=== PATIENT | male | born 1955 | race Caucasian/White ===

== ENCOUNTER → 2017-11-02 | Outpatient (CLI) | payer BC ==
[~2017-11-02] MED LIST: COZAAR100 MG PO; NO HOME MEDICATIONS; PRILOSEC 20MG20 MG PO; SILVADENE CREAM1 TU TP; XANAX 0.5MG0.5 MG PO
== END ==
LOC: COL.RAD 12:17
DX: S32.010A Wedge compression fracture of first lumbar vertebra, initial encounter for closed fracture (principal)

== ENCOUNTER → 2017-11-08 | Outpatient (CLI) | payer BC ==
[2017-11-08] VITALS (11 sets, daily range): BP systolic 115–152; BP diastolic 60–87; PULSE 96–109
[~2017-11-08] VITALS: Ht 177.8 cm; Wt 76.4 kg
[~2017-11-08] MED LIST changes: +LASIX 20MG TABL20 MG PO; +NORCO 325 MG-51 TAB PO; +VALTREX1 GM PO
== END ==
LOC: COL.RAD 12:00
DX: S32.010A Wedge compression fracture of first lumbar vertebra, initial encounter for closed fracture (principal); Z82.49 Family history of ischemic heart disease and other diseases of the circulatory system; Z80.7 Family history of other malignant neoplasms of lymphoid, hematopoietic and related tissues

== ENCOUNTER 2017-11-15 17:01 | Inpatient (IN) | payer BC ==
[~2017-11-15] VITALS: Ht 177.8 cm; Wt 71.5 kg
[~2017-11-15 17:01] MED LIST changes: -LASIX 20MG TABL20 MG PO
[2017-11-15 17:36] VITALS: BP 136/70; PULSE 110; TEMP 98.5
[2017-11-15 21:33] VITALS: BP 122/58; PULSE 106; TEMP 98.3
[2017-11-15] MEDS ORDERED: LASIX 20MG TABL20 MG PO (23:09)
[2017-11-16] VITALS (13 sets, daily range): BP systolic 107–154; BP diastolic 58–74; PULSE 86–101; TEMP 97.3–98.8
[2017-11-16 07:17] LABS: BASO # 0.1 (0.0-0.2); BASO % 0.6 % (0.0-2.0); EOS # 0.4 (0.0-0.7); EOS % 4.8 % (0-4.0); GRAN # 5.1 (1.4-6.5); GRAN % 59.2 % (42.2-75.2); HEMATOCRIT 33.6 % (42.0-52.0); HEMOGLOBIN 11.3 g/dl (13.5-18.0); LYMPH # 1.5 (1.2-3.4); LYMPH % 17.9 % (20.0-51.0); MEAN CELL VOLUME 89 fl (80.0-100.0); MEAN CORPUSCULAR HEMOGLOBIN 30 pg (27.0-31.0); MEAN CORPUSCULAR HGB CONC 34 g/dl (33.0-37.0); MONO # 1.4 (0.1-0.6); MONO % 15.8 % (1.7-9.3); PLATELET COUNT 274 K/mm3 (130-400); RED BLOOD COUNT 3.77 M/mm3 (4.20-5.60); REDCELL DISTRIBUTION WIDTH-CV 12.1 % (11.5-14.5)
[2017-11-16 07:34] LABS: ALBUMIN 3.3 gm/dL (3.5-5.0); BILIRUBIN,TOTAL 0.4 mg/dL (0.0-1.0); POTASSIUM 3.2 mmol/L (3.4-5.0); TOTAL PROTEIN 6.7 gm/dL (6.4-8.2)
[2017-11-16 07:46] LABS: CREATININE, serum 4.23 mg/dL (0.66-1.25)
[2017-11-16 07:47] LABS: CALCIUM 14.9 mg/dL (8.4-10.2)
[2017-11-16 13:34] LABS: COLLECTION METHOD CLEAN CATCH
[2017-11-16 13:41] LABS: MUCOUS Present /lpf; PH 6 (5-8); SQUAMOUS EPITHELIAL None Seen /hpf; URINE APPEARANCE Clear; URINE BACTERIA None Seen /hpf; URINE BILIRUBIN Negative (NEGATIVE); URINE BLOOD 1+ (NEGATIVE); URINE COLOR Straw; URINE GLUCOSE Negative (NEGATIVE); URINE KETONE Negative (NEGATIVE); URINE LEUKOCYTE ESTERASE Negative (NEGATIVE); URINE NITRATE Negative (NEGATIVE); URINE PROTEIN(semi-quant) 1+ (NEGATIVE); URINE RBC 0-2 /hpf; URINE UROBILINOGEN Negative (NEGATIVE)
[2017-11-16 14:04] LABS: CREATININE, serum 4.25 mg/dL (0.66-1.25); FRACTIONAL EXCRETION OF NA+ 2.7 %
[2017-11-16 21:23] LABS: CREATININE, serum 3.89 mg/dL (0.66-1.25); POTASSIUM 4.1 mmol/L (3.4-5.0)
[2017-11-16 21:25] LABS: CALCIUM 13.9 mg/dL (8.4-10.2)
[2017-11-17 01:47] VITALS: BP 142/63; PULSE 98; TEMP 98.1
[2017-11-17 06:29] VITALS: BP 148/98; PULSE 84; TEMP 97.8
[2017-11-17 07:38] LABS: MEAN CELL VOLUME 89 fl (80.0-100.0); MEAN CORPUSCULAR HGB CONC 33 g/dl (33.0-37.0); MEAN PLATELET VOLUME 11.9 fl (7.4-10.4); PLATELET COUNT 227 K/mm3 (130-400); REDCELL DISTRIBUTION WIDTH-CV 12.2 % (11.5-14.5)
[2017-11-17 07:58] LABS: CREATININE, serum 3.75 mg/dL (0.66-1.25); MAGNESIUM 1.6 mg/dL (1.6-2.3)
[2017-11-17 08:03] LABS: HEMATOCRIT 32.1 % (42.0-52.0); HEMOGLOBIN 10.7 g/dl (13.5-18.0); MEAN CORPUSCULAR HEMOGLOBIN 30 pg (27.0-31.0)
[2017-11-17 08:04] LABS: POTASSIUM 4.3 mmol/L (3.4-5.0)
[2017-11-17 08:05] LABS: CALCIUM 13.9 mg/dL (8.4-10.2)
[2017-11-17 08:43] LABS: BAND 11 % (0-10); BASOPHIL 1 % (0-2); LYMPHOCYTE 8 % (20.0-51.0); NEUTROPHILS 78 % (42.0-75.2)
[2017-11-17 08:45] LABS: PLATELET ESTIMATE NORMAL (NORMAL)
[2017-11-17 08:47] LABS: HYPERSEGMENTED POLYS PRESENT
[2017-11-17 10:50] VITALS: BP 119/58; PULSE 69; TEMP 100.2
[2017-11-17 15:14] VITALS: BP 121/61; PULSE 102; TEMP 100.3
[2017-11-17 18:52] VITALS: BP 113/61; PULSE 94; TEMP 99.3
[2017-11-17 21:41] VITALS: BP 125/51; PULSE 111; TEMP 99.8
[2017-11-18 01:10] VITALS: BP 117/55; PULSE 98; TEMP 98.2
[2017-11-18 04:59] VITALS: BP 112/61; PULSE 90; TEMP 98.1
[2017-11-18 07:01] LABS: CALCIUM 11.5 mg/dL (8.4-10.2); CREATININE, serum 3.55 mg/dL (0.66-1.25); MAGNESIUM 1.5 mg/dL (1.6-2.3); POTASSIUM 3.8 mmol/L (3.4-5.0)
[2017-11-18 10:26] VITALS: BP 120/68; PULSE 99; TEMP 98.3
[2017-11-18 14:41] VITALS: BP 133/68; PULSE 111; TEMP 98.9
[2017-11-18 19:05] VITALS: BP 140/73; PULSE 110; TEMP 99.1
[2017-11-18 21:45] VITALS: BP 143/62; PULSE 104; TEMP 99
[2017-11-19 00:47] VITALS: BP 128/63; PULSE 98; TEMP 98.5
[2017-11-19 04:46] VITALS: BP 125/61; PULSE 100; TEMP 99.3
[2017-11-19 06:08] LABS: BASO % 0.3 % (0.0-2.0); EOS # 0.1 (0.0-0.7); EOS % 0.7 % (0-4.0); GRAN # 7.4 (1.4-6.5); GRAN % 74.8 % (42.2-75.2); LYMPH % 10.5 % (20.0-51.0); MEAN CELL VOLUME 91 fl (80.0-100.0); MEAN CORPUSCULAR HGB CONC 33 g/dl (33.0-37.0); MEAN PLATELET VOLUME 12.4 fl (7.4-10.4); MONO # 1.2 (0.1-0.6); MONO % 12.5 % (1.7-9.3); PLATELET COUNT 201 K/mm3 (130-400); RED BLOOD COUNT 3.33 M/mm3 (4.20-5.60); REDCELL DISTRIBUTION WIDTH-CV 12.8 % (11.5-14.5)
[2017-11-19 06:23] LABS: CREATININE, serum 3.34 mg/dL (0.66-1.25); HEMATOCRIT 30.3 % (42.0-52.0); HEMOGLOBIN 9.9 g/dl (13.5-18.0); MAGNESIUM 2.1 mg/dL (1.6-2.3); MEAN CORPUSCULAR HEMOGLOBIN 30 pg (27.0-31.0); PHOSPHOROUS 3.1 mg/dL (2.5-4.5); POTASSIUM 3.5 mmol/L (3.4-5.0)
[2017-11-19 08:16] LABS: PATHOLOGY DIFF REVIEW OK
[2017-11-19 10:59] VITALS: BP 123/70; PULSE 97; TEMP 98.3
[2017-11-19 13:45] VITALS: BP 127/68; PULSE 107; TEMP 98.3
[2017-11-19 19:18] VITALS: BP 127/63; PULSE 98; TEMP 99.2
[2017-11-19 22:00] VITALS: BP 130/69; PULSE 103; TEMP 98
[2017-11-20 05:57] VITALS: BP 124/73; PULSE 97; TEMP 98.4
[2017-11-20 07:35] LABS: BASO % 0.4 % (0.0-2.0); EOS # 0.3 (0.0-0.7); EOS % 2.6 % (0-4.0); GRAN # 7.3 (1.4-6.5); GRAN % 72.4 % (42.2-75.2); LYMPH # 1.2 (1.2-3.4); MEAN CELL VOLUME 88 fl (80.0-100.0); MEAN CORPUSCULAR HGB CONC 34 g/dl (33.0-37.0); MEAN PLATELET VOLUME 12.2 fl (7.4-10.4); MONO # 1.1 (0.1-0.6); PLATELET COUNT 206 K/mm3 (130-400); RED BLOOD COUNT 3.55 M/mm3 (4.20-5.60); REDCELL DISTRIBUTION WIDTH-CV 12.7 % (11.5-14.5)
[2017-11-20 07:42] LABS: CALCIUM 9.9 mg/dL (8.4-10.2); CREATININE, serum 3.23 mg/dL (0.66-1.25); POTASSIUM 3.2 mmol/L (3.4-5.0)
[2017-11-20 07:45] LABS: HEMATOCRIT 31.3 % (42.0-52.0); HEMOGLOBIN 10.6 g/dl (13.5-18.0); MEAN CORPUSCULAR HEMOGLOBIN 30 pg (27.0-31.0)
[2017-11-20 09:13] VITALS: BP 123/64; PULSE 96; TEMP 98.2
[2017-11-20] MEDS ORDERED: LEADER CLEARLAX 510 PO (13:31)
[2017-11-20] MEDS ORDERED: SENOKOT S 50 MG1 TAB PO (13:32)
[2017-11-20] MEDS ORDERED: ZYLOPRIM 300MG300 MG PO (13:33)
[2017-11-20] MEDS ORDERED: LEVAQUIN 750MG750 M1 PO (13:33)
[2017-11-20 13:34] VITALS: BP 122/71; PULSE 89; TEMP 97.7
== END 2017-11-20 14:52 | disposition home or self-care (01) | DRG 682 ==
LOC: SURG 17:01
PROVIDERS: Internal Medicine; Nurse Practitioner; Nurse Practitioner Family; Pathology Anatomic Pathology & Clinical Pathology
PROC: 07DR3ZX Extraction of Iliac Bone Marrow, Percutaneous Approach, Diagnostic (ICD-10-PCS; principal; 2017-11-16 09:30)
DX: N17.9 Acute kidney failure, unspecified (principal); J18.9 Pneumonia, unspecified organism; E43 Unspecified severe protein-calorie malnutrition; C90.00 Multiple myeloma not having achieved remission; M48.56XA Collapsed vertebra, not elsewhere classified, lumbar region, initial encounter for fracture; C79.51 Secondary malignant neoplasm of bone; E83.52 Hypercalcemia; Z95.2 Presence of prosthetic heart valve; I10 Essential (primary) hypertension; K58.0 Irritable bowel syndrome with diarrhea; I27.20 Pulmonary hypertension, unspecified; E87.6 Hypokalemia; E83.42 Hypomagnesemia
CPT/HCPCS: 99223-AI; 99232-AI; 99233-AI; 99239; J0630; J1644; J1940; J1956; J2270; J2405; J2430; J2704; J3010; J3370; J3475; J3480; J7030; J7050

== ENCOUNTER 2018-01-27 09:54 | Emergency (ER) | payer BC ==
[~2018-01-27] VITALS: Ht 177.8 cm; Wt 75.0 kg
[~2018-01-27 09:54] MED LIST changes: +LASIX 20MG TABL20 MG PO; +LEADER CLEARLAX 510 PO; +LEVAQUIN 750MG750 M1 PO; +SENOKOT S 50 MG1 TAB PO; +ZYLOPRIM 300MG300 MG PO
[2018-01-27 10:00] VITALS: BP 130/73; TEMP 98.1
[2018-01-27] MEDS ORDERED: PRILOSEC 20MG20 MG PO (10:38)
[2018-01-27] MEDS ORDERED: LASIX 40MG TABL40 MG PO (10:39)
[2018-01-27] MEDS ORDERED: COZAAR 25MG25 MG/TAB PO (10:39)
[2018-01-27] MEDS ORDERED: ZOVIRAX400 MG PO (10:40)
[2018-01-27] MEDS ORDERED: REVLIMID25 MG (10:55)
[2018-01-27] MEDS ORDERED: ASPIRIN 32325 MG/TAB PO (10:56)
[2018-01-27] MEDS ORDERED: VELCADE3.5 MG IM (10:56)
[2018-01-27] MEDS ORDERED: XGEVA120 MG/1.7 IM (10:57)
[2018-01-27] MEDS ORDERED: DECADRON 4MG TAB4 MG PO (10:57)
[2018-01-27 11:12] VITALS: PULSE 93
== END 2018-01-27 11:12 | disposition home or self-care (01) ==
LOC: COL.ER 09:54
DX: M79.602 Pain in left arm (principal); C90.00 Multiple myeloma not having achieved remission; Z79.82 Long term (current) use of aspirin

== ENCOUNTER → 2018-01-29 | Outpatient (CLI) | payer BC ==
[~2018-01-29] MED LIST changes: +ASPIRIN 32325 MG/TAB PO; +COZAAR 25MG25 MG/TAB PO; +DECADRON 4MG TAB4 MG PO; +LASIX 40MG TABL40 MG PO; +REVLIMID25 MG; +VELCADE3.5 MG IM; +XGEVA120 MG/1.7 IM; +ZOVIRAX400 MG PO
== END ==
LOC: COL.VAS 08:00
DX: C90.00 Multiple myeloma not having achieved remission (principal); S46.812A Strain of other muscles, fascia and tendons at shoulder and upper arm level, left arm, initial encounter; S40.022A Contusion of left upper arm, initial encounter; Z79.899 Other long term (current) drug therapy

== ENCOUNTER 2019-01-05 12:19 | Inpatient (IN) | payer BC ==
[~2019-01-05] VITALS: Ht 172.7 cm; Wt 75.0 kg
[2019-01-05] MEDS ORDERED: ZOVIRAX800 MG PO (12:46)
[2019-01-05] MEDS ORDERED: NEURONTIN600 MG/TAB PO (12:47)
[2019-01-05] MEDS ORDERED: CEFTIN 250250 MG/TAB PO ×2 (12:47→17:06)
[2019-01-05] MEDS ORDERED: LEVAQUIN 5500 MG/TA1 PO ×2 (12:47→17:07)
[2019-01-05 13:31] LABS: HEMOGLOBIN 10.4 g/dl (13.5-18.0); MEAN CELL VOLUME 99 fl (80.0-100.0); MEAN CORPUSCULAR HEMOGLOBIN 32 pg (27.0-31.0); MEAN CORPUSCULAR HGB CONC 33 g/dl (33.0-37.0); MEAN PLATELET VOLUME 11.3 fl (7.4-10.4); PLATELET COUNT 218 K/mm3 (130-400); RED BLOOD COUNT 3.22 M/mm3 (4.20-5.60); REDCELL DISTRIBUTION WIDTH-CV 15.5 % (11.5-14.5)
[2019-01-05 13:37] LABS: HEMATOCRIT 31.8 % (42.0-52.0)
[2019-01-05 13:42] LABS: ALBUMIN 3.6 gm/dL (3.5-5.0); BILIRUBIN,TOTAL 0.6 mg/dL (0.0-1.0); CALCIUM 8.5 mg/dL (8.4-10.2); CREATININE, serum 0.99 (0.66-1.25); POTASSIUM 3.7 mmol/L (3.4-5.0); TOTAL PROTEIN 6.7 gm/dL (6.4-8.2)
[2019-01-05 13:44] LABS: BAND 22 % (0-10); NEUTROPHILS 76 % (42.0-75.2); PLATELET ESTIMATE NORMAL (NORMAL); TOXIC GRANULATION PRESENT
[2019-01-05 14:04] LABS: C-REACTIVE PROTEIN 30.7 mg/dL (0.0-0.9)
[2019-01-05 14:09] LABS: TROPONIN-I < 0.012 ng/mL (0.000-0.035)
[2019-01-05 15:29] LABS: COLLECTION METHOD CLEAN CATCH
[2019-01-05 15:35] LABS: PH 6 (5-8); SQUAMOUS EPITHELIAL None Seen /hpf; URINE APPEARANCE Clear; URINE BACTERIA None Seen /hpf; URINE BILIRUBIN Negative (NEGATIVE); URINE BLOOD Negative (NEGATIVE); URINE COLOR Straw; URINE GLUCOSE Negative (NEGATIVE); URINE KETONE Negative (NEGATIVE); URINE LEUKOCYTE ESTERASE Negative (NEGATIVE); URINE NITRATE Negative (NEGATIVE); URINE PROTEIN(semi-quant) Negative (NEGATIVE); URINE RBC 0-2 /hpf; URINE UROBILINOGEN Negative (NEGATIVE)
[2019-01-05 16:58] VITALS: BP 136/70; PULSE 95; TEMP 99.4
[2019-01-05] MEDS ORDERED: PREDNISONE 5MG5 MG PO (17:08)
[2019-01-05] MEDS ORDERED: DECADRON 4MG TAB4 MG PO (17:09)
--- NOTE | 2019-01-05 17:53 | NUR ---
Patient received from the Er. Patient sitting up in chair. Very alert & oriented. Inital, 5 page and med rec completed. Orders reviewed. Patient ordered dinner. Called & notifed Dr. Newman patient would like some medication for his persistant dry cough. Iv to Lac, antibioitcs per orders. Vss on room air, low grade fever.
--- NOTE | 2019-01-05 19:01 | NUR ---
report to octavio Segura
[2019-01-05 19:13] VITALS: BP 153/68; PULSE 92; TEMP 98.4
[2019-01-05 20:00] VITALS: BP 153/68; PULSE 92; TEMP 98.4
--- NOTE | 2019-01-05 20:00 | NUR ---
PATIENT IS A&O BUT HAVING A DIFFICULT TIME TALKING WITH ALL HIS COUGHING. NOTED DRY COUGH. SPUTUM PENDING IF PATIENT IS ABLE TO PRODUCE ANY. CALLED FOR MARIO JUNIOR ORDER, GIVEN. NOTED A&P LUNG JACKSON TO BE COARSE AND DEMINISHED. PATIENT COUGHING FREQUENTLY. PATIENT GETTING IV ABX FOR BILATERAL PNEUMONIA. CURRENTLY AFEBRILE. VSS. BLOOD CULTURES PENDING. HEAD TO TOE ASSESSMENT COMPLETE. NO OTHER NEEDS AT THIS TIME.
[2019-01-06] VITALS (8 sets, daily range): BP systolic 110–149; BP diastolic 59–83; PULSE 70–107; TEMP 97.2–103.1
[2019-01-06 02:49] LABS: MEAN CELL VOLUME 99 fl (80.0-100.0); MEAN CORPUSCULAR HGB CONC 33 g/dl (33.0-37.0); MEAN PLATELET VOLUME 11.1 fl (7.4-10.4); PLATELET COUNT 213 K/mm3 (130-400); RED BLOOD COUNT 2.92 M/mm3 (4.20-5.60); REDCELL DISTRIBUTION WIDTH-CV 15.7 % (11.5-14.5)
[2019-01-06 02:54] LABS: HEMATOCRIT 28.8 % (42.0-52.0); HEMOGLOBIN 9.4 g/dl (13.5-18.0); MEAN CORPUSCULAR HEMOGLOBIN 32 pg (27.0-31.0)
[2019-01-06 03:05] LABS: CALCIUM 7.9 mg/dL (8.4-10.2); POTASSIUM 3.6 mmol/L (3.4-5.0)
[2019-01-06 03:15] LABS: BAND 6 % (0-10); BASOPHIL 1 % (0-2); EOSINOPHIL 6 % (0-4); LYMPHOCYTE 5 % (20.0-51.0); NEUTROPHILS 80 % (42.0-75.2)
[2019-01-06 03:16] LABS: ANISOCYTOSIS 1+; HYPOCHROMIA 1+; POIKILOCYTOSIS 1+
[2019-01-06 03:17] LABS: ROULEAUX 2+
[2019-01-06 03:18] LABS: OVALOCYTES 1+; TEAR DROP CELLS 1+
--- NOTE | 2019-01-06 08:30 | NUR ---
Patient in bed resting. Alert and oriented x3. Shift assessment complete. Course lung sounds throughout. Dyspnea at rest. IV fluids and antibiots infusing per orders via pump. Denies pain or further needs at this time.
--- NOTE | 2019-01-06 10:00 | NUR ---
Initial visit; Patient thanked Turn Out for looking in on him and helping him get comfortably sitting on his bed after having gone to the restroom . Turn Out let patient know [facility] is available and offered God's blessings.
--- NOTE | 2019-01-06 10:49 | NUR ---
BRIA met with the patient to discuss a discharge plan. The pt lives in [place] with his Preeti. The pt does not use any DME and reports independence with ADLs. The pt's PCP is Dr. Dar Deluna and the pt receives his medication from [facility]. The pt reports no difficulties obtaining his medications. The pt does not have advanced directives in the EMR, but reports that he does have them ready to complete. The pt plans to return home with Preeti upon discharge. There are no additional needs at this time.
--- NOTE | 2019-01-06 18:29 | NUR ---
Patient up in chair eating supper. IV restarted to right forarm, x 1 attempt. Tolerated procedure well. Denies pain at this time. States he continues to cough however not having sputum out. Independent in room. Patient showered, bed linens changed. Denies further needs at this time.
--- NOTE | 2019-01-06 20:00 | NUR ---
PATIENT IS A&O AND REPORTS HE WILL BE GOING TO BED EARLY TONIGHT HE HASN'T SLEPT WELL IN THE HOSPITAL. PATIENT REPORTS COUGH IS BETTER AND NON-PRODUCTIVE. SPUTUM CULTURE STILL PENDING COLLECTION. PATIENT REQUEST PRN MARIO HOYOS WITH EVENING MEDS. HALLS COUGH DROPS AT BEDSIDE. LUNG JACKSON STILL COARSE WITH FC IN BASES. PATIENT ON IV ABX. HEAD TO TOE COMPLETE. CALL LIGHT IN REACH.
[2019-01-07 03:26] VITALS: BP 106/60; PULSE 68; TEMP 97.7
[2019-01-07 06:01] LABS: BASO % 0.2 % (0.0-2.0); EOS % 0.4 % (0-4.0); GRAN # 4.4 (1.4-6.5); GRAN % 88.8 % (42.2-75.2); LYMPH # 0.2 (1.2-3.4); MEAN CELL VOLUME 100 fl (80.0-100.0); MEAN CORPUSCULAR HGB CONC 32 g/dl (33.0-37.0); MEAN PLATELET VOLUME 11.1 fl (7.4-10.4); MONO # 0.3 (0.1-0.6); MONO % 6.6 % (1.7-9.3); PLATELET COUNT 233 K/mm3 (130-400); RED BLOOD COUNT 2.92 M/mm3 (4.20-5.60); REDCELL DISTRIBUTION WIDTH-CV 15.5 % (11.5-14.5)
[2019-01-07 06:09] LABS: HEMATOCRIT 29.2 % (42.0-52.0); HEMOGLOBIN 9.4 g/dl (13.5-18.0); MEAN CORPUSCULAR HEMOGLOBIN 32 pg (27.0-31.0)
[2019-01-07 06:18] LABS: CALCIUM 8.6 mg/dL (8.4-10.2); CREATININE, serum 0.84 (0.66-1.25); POTASSIUM 3.3 mmol/L (3.4-5.0)
[2019-01-07 07:46] VITALS: BP 115/62; PULSE 79; TEMP 97.7
--- NOTE | 2019-01-07 11:00 | NUR ---
Patient alert and oriented, answers questions appropriately. See assessment. No c/o SOA, no use of accessory muscles noted. Lungs decreased in bases, clear in upper lobes. No other c/o at this time.
[2019-01-07 12:59] VITALS: BP 123/70; PULSE 88; TEMP 97.6
[2019-01-07 15:32] VITALS: BP 115/68; PULSE 68; TEMP 97.5
[2019-01-07 19:37] VITALS: BP 141/69; PULSE 71; TEMP 98.3
[2019-01-07 23:14] VITALS: BP 142/72; PULSE 69; TEMP 97.8
[2019-01-08 03:13] VITALS: BP 136/69; PULSE 50; TEMP 97.8
[2019-01-08 06:14] LABS: MEAN CELL VOLUME 98 fl (80.0-100.0); MEAN CORPUSCULAR HGB CONC 33 g/dl (33.0-37.0); MEAN PLATELET VOLUME 10.8 fl (7.4-10.4); PLATELET COUNT 200 K/mm3 (130-400); RED BLOOD COUNT 2.62 M/mm3 (4.20-5.60); REDCELL DISTRIBUTION WIDTH-CV 15.5 % (11.5-14.5)
[2019-01-08 06:25] LABS: HEMATOCRIT 25.7 % (42.0-52.0); HEMOGLOBIN 8.4 g/dl (13.5-18.0); MEAN CORPUSCULAR HEMOGLOBIN 32 pg (27.0-31.0)
[2019-01-08 06:27] LABS: CALCIUM 8.5 mg/dL (8.4-10.2); CREATININE, serum 0.84 (0.66-1.25); POTASSIUM 4.1 mmol/L (3.4-5.0)
[2019-01-08 07:24] VITALS: BP 139/72; PULSE 54; TEMP 97.9
[2019-01-08 07:35] LABS: EOSINOPHIL 1 % (0-4); LYMPHOCYTE 3 % (20.0-51.0); NEUTROPHILS 92 % (42.0-75.2); PLATELET ESTIMATE NORMAL (NORMAL)
--- NOTE | 2019-01-08 08:58 | NUR ---
Patient in bed resting. Alert and oriented x 3. Shift assessment complete. Denies pain at this time. Antibiotics infusing to right forarm via pump per orders. Denies further needs at this time. Dr. Hopper and care team in to see patient.
[2019-01-08] MEDS ORDERED: OMNICEF 300MG300 MG PO (10:25)
[2019-01-08] MEDS ORDERED: TESSALON P100 MG/CAP PO (10:25)
[2019-01-08] MEDS ORDERED: PREDNISONE10 MG PO (10:28)
[2019-01-08 11:13] VITALS: BP 126/77; PULSE 73; TEMP 97.6
--- NOTE | 2019-01-08 12:16 | NUR ---
Discharge education provided to patient. Educated on signs and symptoms of infection and when to call provider. Patient educated on new medications sent to pharmacy. All questions answered. INT to right forarm discontinued, catheter tip intact. Tolerated procedure well. Denies further needs, patient will call when he is ready to leave.
--- NOTE | 2019-01-08 12:36 | NUR ---
Patient out by wheelchair with surgical staff.
[2019-01-12 21:42] LABS: BLASTOMYCES AB CF XXX; COCCIDIOIDES AB CF XXX; HISTOPLASMA MYCELIAL AB CF XXX
== END 2019-01-08 12:39 | disposition home or self-care (01) | DRG 871 ==
LOC: COL.ER 12:19 → SURG 16:30
PROVIDERS: Physician Assistant; ADMIT Hospitalist
DX: A41.9 Sepsis, unspecified organism (principal); J18.1 Lobar pneumonia, unspecified organism; C90.00 Multiple myeloma not having achieved remission; Z94.81 Bone marrow transplant status; I10 Essential (primary) hypertension; K21.9 Gastro-esophageal reflux disease without esophagitis; E87.6 Hypokalemia; K20.9 Esophagitis, unspecified; Z92.21 Personal history of antineoplastic chemotherapy
CPT/HCPCS: 99222-AI; 99231-AI; 99232-AI; 99239; J1650; J2543; J3370; J7030; J7050; J7512; Q9967

== ENCOUNTER 2019-05-13 13:40 | Day surgery (SDC) | payer BC ==
[~2019-05-13] VITALS: Ht 172.7 cm; Wt 64.0 kg
[~2019-05-13 13:40] MED LIST changes: +CEFTIN 250250 MG/TAB PO; +LEVAQUIN 5500 MG/TA1 PO; +NEURONTIN600 MG/TAB PO; +OMNICEF 300MG300 MG PO; +PREDNISONE 5MG5 MG PO; +PREDNISONE10 MG PO; +TESSALON P100 MG/CAP PO; +ZOVIRAX800 MG PO
[2019-05-13] MEDS ORDERED: CALCIUM 600MG+D1 TAB PO (14:04)
[2019-05-13] MEDS ORDERED: K-DUR20 MEQ PO (14:05)
[2019-05-13] MEDS ORDERED: FLOMAX 0.40.4 MG/CAP PO (14:05)
[2019-05-13] MEDS ORDERED: XANAX 0.5MG0.5 MG PO (14:06)
[2019-05-13] MEDS ORDERED: ZOFRAN 4MG T4 MG/TAB PO (14:07)
[2019-05-13] MEDS ORDERED: TESSALON P100 MG/CAP PO (14:07)
[2019-05-13 14:10] VITALS: BP 117/89; PULSE 97; TEMP 98.3
[2019-05-13 15:45] VITALS: BP 98/69; PULSE 91
--- NOTE | 2019-05-13 15:45 | NUR ---
Patient returns to [facility] 5 per cart and transfers to recliner with one person assist. Contact isolation maintained for C.Diff precautions. Given Sprite and chocolate pudding to eat and drink. Spouse in room. IV fluids infusing.
[2019-05-13 16:00] VITALS: BP 107/73; PULSE 90
--- NOTE | 2019-05-13 16:00 | NUR ---
Dr. Knox here to talk with the patient and spouse. All questions answered.
[2019-05-13] MEDS ORDERED: PEPCID40 MG PO (16:06)
[2019-05-13] MEDS ORDERED: IMODIUM 2MG CAPS2 MG PO (16:07)
[2019-05-13 16:15] VITALS: BP 103/65; PULSE 87
--- NOTE | 2019-05-13 16:15 | NUR ---
IV discontinued and patient dresses self.
--- NOTE | 2019-05-13 16:20 | NUR ---
Dismissal instructions given and signed. Voices understanding. Instructed to begin Pepcid and Imodium.
--- NOTE | 2019-05-13 16:35 | NUR ---
Patient dismissed to home driven by spouse per private vehicle and taken to the car per wheelchair and assisted into car by RN. Instructions in hand.
== END 2019-05-13 16:35 | disposition home or self-care (01) ==
LOC: SDCO 13:40
DX: K57.30 Diverticulosis of large intestine without perforation or abscess without bleeding (principal); K21.0 Gastro-esophageal reflux disease with esophagitis; R19.7 Diarrhea, unspecified; Z85.79 Personal history of other malignant neoplasms of lymphoid, hematopoietic and related tissues; I10 Essential (primary) hypertension
CPT/HCPCS: J2250; J2405; J3010